=== PATIENT | female | born 1955 | race Caucasian/White ===

== ENCOUNTER 2018-08-04 04:54 | Emergency (ER) | payer BC ==
--- NOTE | 2018-08-04 05:35 | ED ---
GI/ HPI - HPI Summary HPI Summary: Patient is a 63 y/o F w/ c/o right flank pain, right lower back pain, ribcage pain, and periumbilical pain onsetting today at midnight. Patient states she was asleep when she was awoken by pain. She denies SOB, fever, cough and vomiting but notes burping a lot. In room, she states abdominal pain has resolved. 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 She states she is doing radiation therapy, no chemo. Patient notes that she has an appointment at [facility] [place] for [place] treatment. Patient took 5 mg oxycodone at 1000 yesterday and states she is on letrozole and ibrance. She reports having Chest CT six days ago. Patient recently travelled to [place]. On triage, pain is rated 7/10. Movement is noted to aggravate pain, nothing is noted to alleviate Sx. Home medications and allergies are reviewed. - History of Current Complaint Time Seen by Provider: 08/04/18 04:59 Stated Complaint: BACL PAIN/ABD PAIN Hx Obtained From: Patient Onset/Duration: Started Hours Ago - onset midnight today, Still Present - right flank pain and right back pain, Resolved - abdominal pain is reported to have resolved Timing: Constant Current Severity: Severe - 7/10 Pain Intensity: 7 Location of Pain: Flank - right flank, Umbilical, Other - right lower back pain Associated Signs and Symptoms: Positive: Back Pain - right lower, Flank Pain - right, Abdominal Pain - periumbilical, Other: - NEGATIVE: SOB POSITIVE: ribcage pain. Negative: Vomiting Aggravating Factor(s): Movement Alleviating Factor(s): Nothing - Allergy/Home Medications Allergies/Adverse Reactions: Allergies Allergy/AdvReac Type Severity Reaction Status Date / Time Penicillins Allergy Severe Swelling Verified 08/04/18 05:24 Of Face,Lips,& Throat Sulfa (Sulfonamide Allergy Mild Itching Verified 08/04/18 05:24 Antibiotics) Home Medications: Home Medications Letrozole 2.5 mg PO DAILY 08/04/18 [History Confirmed 08/04/18] oxyCODONE TAB* 5 ml PO Q4HR PRN 08/04/18 [History Confirmed 08/04/18] PMH/Surg Hx/FS Hx/Imm Hx Endocrine/Hematology History: Denies: Hx Diabetes Cardiovascular History: Denies: Hx Hypertension History: Denies: Hx Renal Disease Musculoskeletal History: Denies: Hx Osteoporosis - Cancer History Cancer Type, Location and Year: BREAST CA - Surgical History Surgery Procedure, Year, and Place: BILATERAL LUMPECTOMY, CHOLECYSTECTOMY Infectious Disease History: No Infectious Disease History: Denies: Traveled Outside the [place] in Last 30 Days - Family History Known Family History: Negative: Blood Disorder - Social History Alcohol Use: Occasionally Substance Use Type: Reports: None Smoking Status (MU): Never Smoked Tobacco Review of Systems Negative: Fever Positive: Other - ribcage pain Negative: Shortness Of Breath, Cough Positive: Abdominal Pain - periumbilical , Other - patient reports burping a lot . Negative: Vomiting Positive: flank pain - right Positive: Other - right lower back pain All Other Systems Reviewed And Are Negative: Yes Physical Exam - Summary Physical Exam Summary: VITAL SIGNS: Reviewed. GENERAL: Patient is a well-developed and nourished female who is lying comfortable in the stretcher. Patient is not in any acute respiratory distress. Tenderness over right lower chest wall, posterior HEAD AND FACE: No signs of trauma. No ecchymosis, hematomas or skull depressions. No sinus tenderness. EYES: PERRLA, EOMI x 2, No injected conjunctiva, no nystagmus. EARS: Hearing grossly intact. Ear canals and tympanic membranes are within normal limits. MOUTH: Oropharynx within normal limits. NECK: Supple, trachea is midline, no adenopathy, no JVD, no carotid bruit, no c- spine tenderness, neck with full ROM. CHEST: Symmetric, no tenderness at palpation LUNGS: Clear to auscultation bilaterally. No wheezing or crackles. CVS: Regular rate and rhythm, S1 and S2 present, no murmurs or gallops appreciated. ABDOMEN: Soft, non-tender. No signs of distention. No rebound no guarding, and no masses palpated. Bowel sounds are normal. EXTREMITIES: FROM in all major joints, no edema, no cyanosis or clubbing. NEURO: Alert and oriented x 3. No acute neurological deficits. Speech is normal and follows commands. SKIN: Dry and warm Triage Information Reviewed: Yes Vital Signs On Initial Exam: Initial Vitals Temp Pulse Resp BP Pulse Ox 97.8 F 58 16 139/63 97 08/04/18 05:05 08/04/18 05:05 08/04/18 05:05 08/04/18 05:05 08/04/18 05:05 Vital Signs Reviewed: Yes Procedures - Procedure Summary Procedure Summary: Procedure: IV under US guidance. Verbal consent obtained from patient. Antecubital vein was visualized. Angiocath 18 gauge was used; good blood return , good flush, no complications. Diagnostics - Vital Signs Vital Signs Temp Pulse Resp BP Pulse Ox 08/04/18 05:09 58 139/63 97 08/04/18 05:05 97.8 F 58 16 139/63 97 - Laboratory Result Diagrams: 08/04/18 05:50 08/04/18 05:50 Lab Statement: Any lab studies that have been ordered have been reviewed, and results considered in the medical decision making process. - EKG 0627 Cardiac Rate: Bradycardia - rate of 57 BPM EKG Rhythm: Sinus Bradycardia EKG Interpretation: short HI, no ischemic changes Re-Evaluation - Re-Evaluation First Eval Re-Evaluation Time: 05:58 Comment: Procedure: IV under US guidance. Verbal consent obtained from patient. Antecubital vein was visualized. Angiocath 18 gauge was used; good blood return , good flush, no complications. GIGU Course/Dx - Course Course Of Treatment: Patient is a 63 y/o F w/ c/o right flank pain, right lower back pain, ribcage pain, and periumbilical pain onsetting today at midnight. Patient states she was asleep when she was awoken by pain. She denies SOB, fever , cough and vomiting but notes burping a lot. In room, she states abdominal pain has resolved. 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 She states she is doing radiation therapy, no chemo. Patient notes that she has an appointment at [facility] [place] today for CA treatment. Patient took 5 mg oxycodone at 1000 yesterday and states she is on letrozole and ibrance. She reports having Chest CT six days ago. Patient recently travelled to [place]. On triage, pain is rated 7 /10. Movement is noted to aggravate pain, nothing is noted to alleviate Sx. Physical exam showed tenderness over right lower chest wall, posterior. IV under US guidance was done. Verbal consent obtained from patient. Antecubital vein was visualized. Angiocath 18 gauge was used; good blood return, good flush , no complications. During ED course, patient was given fentanyl 100 mcg IV SLOW PU, Zofran 8 mg IV, and fluids. Labs showed Alkaline Phosphatase 335, trop 0, d-dimer 1050. EKG showed bradycardia at 57 BPM, short HI, and no ischemic changes. Patient was signed out to Dr. Rodriguez pending CTA chest results and disposition. Dx of chest wall pain. - Diagnoses Provider Diagnoses: Chest wall pain Discharge - Sign-Out/Discharge Documenting (check all that apply): Sign-Out Patient Signing out patient TO: Isidro Rodriguez Receiving patient FROM: Noemi Munoz - Discharge Plan Referrals: Renuka Montoya MD [Primary Care Provider] - - Attestation Statements Document Initiated by Scribe: Yes Documenting Scribe: Daryl Austin Provider For Whom Scribe is Documenting (Include Credential): Noemi Munoz MD Scribe Attestation: Daryl Samuels, scribed for Noemi Munoz MD on 08/04/18 at 0653.
[2018-08-04] MEDS ORDERED: fentaNYL* 50 MCG/ML 2 ML VIAL (100 MCG VIAL) IV SLOW PU ONE (05:57)
[2018-08-04] MEDS ORDERED: NS 0.9% 1000 ML* 1,000 ML IV ONE (05:57)
[2018-08-04] MEDS ORDERED: Ondansetron INJ* 2 MG/ML VIAL IV ONE (05:58)
[2018-08-04 06:27] LABS: INR 0.91 (0.77-1.02)
[2018-08-04 06:28] LABS: ABS Basophils 0.1 10^3/ul (0-0.2); ABS Eosinophils 0 10^3/ul (0-0.6); ABS Monocytes 0.5 10^3/ul (0-0.8); ABS Neutrophils 4.3 10^3/ul (1.5-7.7); ABS Nucleated RBC 0 10^3/ul; Eosinophil % 0.6 % (0-6); Hematocrit 36 % (35-47); Hemoglobin 12.2 g/dl (12.0-16.0); Lymphocyte % 17.1 % (25-47); Mean Corpuscular HGB Conc 34 g/dl (31-36); Mean Corpuscular Hemoglobin 28 pg (27-31); Mean Corpuscular Volume 83 fL (80-97); Mean Platelet Volume 8.6 um3 (7.4-10.4); Nucleated Red Blood Cells % 0; Platelet Count 342 10^3/ul (150-450); Red Blood Count 4.35 10^6/ul (4.00-5.40); Red Cell Distribution Width 15 % (10.5-15); White Blood Count 5.8 10^3/ul (3.5-10.8)
[2018-08-04 06:35] LABS: EGFR Non-African American 97.2 (>60)
[2018-08-04] MEDS ORDERED: Iohexol 350* (CONTRAST) 500 ML MDV IV ONE (06:42)
--- NOTE | 2018-08-04 07:45 | RAD ---
INDICATION: Shortness of breath, evaluate for pulmonary embolism. COMPARISON: Comparison is made with a prior CT of the chest from July 28, 2018. TECHNIQUE: A CT angiogram of the chest was performed with intravenous following intravenous injection of 60 ml of Omnipaque 350 nonionic contrast. Contiguous axial sections were obtained from the lung apices through the lung bases. Images were reconstructed in the coronal and sagittal planes. FINDINGS: PULMONARY ARTERIES: There is relatively homogeneous opacification of the pulmonary arteries. No intraluminal filling defect or pulmonary embolism is seen. HEART: The heart appears mildly enlarged. No pericardial effusion is present. There are coronary calcifications present. THORACIC AORTA: The aorta is normal in caliber and demonstrates homogeneous contrast opacification. LUNGS: There are dependent bilateral lower lobe infiltrates most consistent with subsegmental atelectasis. No pleural effusion is seen. No pleural effusion is present. MEDIASTINUM: No significant enlarged mediastinal or hilar lymph nodes are seen. ABDOMEN: No acute findings are seen on the visualized portion of the upper abdomen. BONES AND SOFT TISSUES: There are multiple lytic lesions involving the dorsal vertebra and ribs. There is a 3.4 x 3.8 cm density in the left breast with adjacent surgical clips and calcifications consistent with a breast mass or postoperative hematoma. There are multiple surgical clips in the left axilla. No enlarged axillary lymph nodes are seen. IMPRESSION: 1. NO EVIDENCE FOR PULMONARY EMBOLISM. 2. OSSEOUS METASTATIC DISEASE. 3. LEFT BREAST MASS VERSUS POSTSURGICAL CHANGE.
--- NOTE | 2018-08-04 08:22 | ED ---
Progress - Progress Note Progress Note: This patient was signed out from Dr. Munoz to Dr. Rodriguez, pending disposition, awaiting CTA Chest/Thorax. CTA Chest/Thorax reveals 1. NO EVIDENCE FOR PULMONARY EMBOLISM. 2. OSSEOUS METASTATIC DISEASE. 3. LEFT BREAST MASS VERSUS POSTSURGICAL CHANGE. ED physician has reviewed this radiology report. Re-eval done at 0823. The patient is feeling okay. This patient will be discharged with a dx of flank pain. Patient understands and agrees with this plan. Re-Evaluation - Re-Evaluation First Eval Re-Evaluation Time: 05:58 Comment: Procedure: IV under US guidance. Verbal consent obtained from patient. Antecubital vein was visualized. Angiocath 18 gauge was used; good blood return , good flush, no complications. Course/Dx - Diagnoses Provider Diagnoses: Flank pain Discharge - Sign-Out/Discharge Documenting (check all that apply): Patient Departure - discharge - Discharge Plan Condition: Stable Disposition: HOME Patient Education Materials: Flank Pain (ED) Referrals: Renuka Montoya MD [Primary Care Provider] - 3 Days Additional Instructions: PLEASE RETURN TO THE ED FOR ANY NEW OR WORSENING SYMPTOMS. - Billing Disposition and Condition Condition: STABLE Disposition: Home - Attestation Statements Document Initiated by Scribe: Yes Documenting Scribe: Ta Martinez Provider For Whom Aleta is Documenting (Include Credential): Isidro Rodriguez MD Scribe Attestation: Ta Samuels, scribed for Isidro Rodriguez MD on 08/04/18 at 0846. Scribe Documentation Reviewed: Yes Provider Attestation: The documentation as recorded by the Ta gonzalez accurately reflects the service I personally performed and the decisions made by , Isidro Rodriguez MD
[2018-08-04 08:41] VITALS: BP 126/73
== END 2018-08-04 08:41 | disposition home or self-care (01) ==
LOC: ED 04:54
DX: R07.89 Other chest pain (principal); M89.9 Disorder of bone, unspecified; R10.33 Periumbilical pain; M54.5 Low back pain; R07.81 Pleurodynia; C50.919 Malignant neoplasm of unspecified site of unspecified female breast; C79.89 Secondary malignant neoplasm of other specified sites; R00.1 Bradycardia, unspecified; Z88.0 Allergy status to penicillin; Z88.2 Allergy status to sulfonamides
CPT/HCPCS: 36415; 71275; 80053; 82550; 83735; 84484; 85025; 85379; 85610; 85730; 93005; 96361; 96374; 96375; 99282; J2405; J3010; Q9967

== ENCOUNTER 2024-08-04 12:46 | Inpatient (IN) ==
[2024-08-04 15:07] LABS: Albumin 4.2 g/dL (3.2-5.2); Albumin/Globulin Ratio 1.4 (1-3); Calcium 9.1 mg/dL (8.6-10.3); Creatinine, Serum 1.06 mg/dL (0.51-0.95); Globulin 2.9 g/dL (2-4); Potassium 3.4 mmol/L (3.5-5.0); Total Bilirubin 0.6 mg/dL (0.2-1.0); Total Protein 7.1 g/dL (6.4-8.9); eGFR CKD-EPI 56.9 (>60)
[2024-08-04 15:10] LABS: ABS Eosinophils 0.3 10^3/uL (0.0-0.5); ABS Lymphocytes 0.2 10^3/uL (1.0-4.8); ABS Monocytes 0.1 10^3/uL (0.0-0.9); ABS Neutrophils 5.5 10^3/uL (1.5-7.6); Eosinophil % 4.9 %; Hematocrit 36.3 % (35-45); Hemoglobin 12.4 g/dL (11.5-14.3); Lymphocyte % 3.5 %; Mean Corpuscular Hemoglobin 33.1 pg (27-33); Mean Corpuscular Hgb Conc 34.3 g/dL (31-36); Mean Corpuscular Volume 96.6 fL (80-97); Mean Platelet Volume 8.6 fL (7.5-11.2); Platelet Count 220 10^3/uL (150-450); Red Blood Count 3.75 10^6/uL (3.63-4.92); Red Cell Distribution Width 16.5 % (12-17); White Blood Count 6.2 10^3/uL (3.8-11.8)
[2024-08-04] MEDS ORDERED: Vancomycin per Pharmacy 1 EA NOTE FOLLOW UP SCH (16:00)
[2024-08-04] MEDS: Enoxaparin 40 MG/0.4 ML SYR SUBCUT SCH (17:45)
[2024-08-04] MEDS: NS 0.9% 1000 ml BAG 1,000 ML IV SCH (17:45)
[2024-08-04] MEDS: methylPREDNISolone SOD SUCC 40 mg/ml 1 ml VIAL IV SCH (17:45)
[2024-08-04] MEDS: Vancomycin 1,000 MG in NS 0.9% 250 ml 250 ML IVPB ONE (17:45)
[2024-08-04] MEDS: KCL 20 MEQ/100 ML IVPREMIX 20 MEQ/100 ML BAG IV ONE (19:27)
[2024-08-04] MEDS ORDERED: Famotidine IV 10 MG/ML 2 ml VIAL (20 mg) IV SLOW PU SCH (21:00)
[2024-08-04] MEDS: Famotidine IV 10 MG/ML 2 ml VIAL (20 mg) IV SLOW PU ONE (21:50)
[2024-08-04 23:42] LABS: Urine Appearance Clear; Urine Bilirubin Negative (Negative); Urine Blood Negative (Negative); Urine Color Light-Yellow; Urine Glucose Negative (Negative); Urine Ketones Negative (Negative); Urine Nitrite Negative (Negative); Urine Protein Negative (Negative); Urine Specific Gravity 1.017 (1.002-1.030); Urine Urobilinogen Negative (Negative)
[2024-08-05 06:35] LABS: ABS Lymphocytes 0.2 10^3/uL (1.0-4.8); ABS Monocytes 0.1 10^3/uL (0.0-0.9); ABS Neutrophils 3.4 10^3/uL (1.5-7.6); Eosinophil % 0.8 %; Hematocrit 35.7 % (35-45); Hemoglobin 11.6 g/dL (11.5-14.3); Lymphocyte % 6.3 %; Mean Corpuscular Hemoglobin 32.3 pg (27-33); Mean Corpuscular Hgb Conc 32.5 g/dL (31-36); Mean Corpuscular Volume 99.4 fL (80-97); Mean Platelet Volume 8.6 fL (7.5-11.2); Platelet Count 149 10^3/uL (150-450); Red Blood Count 3.59 10^6/uL (3.63-4.92); Red Cell Distribution Width 16.3 % (12-17); White Blood Count 3.7 10^3/uL (3.8-11.8)
[2024-08-05 06:57] LABS: Albumin 3.5 g/dL (3.2-5.2); Albumin/Globulin Ratio 1.7 (1-3); Calcium 7.6 mg/dL (8.6-10.3); Creatinine, Serum 0.75 mg/dL (0.51-0.95); Globulin 2.1 g/dL (2-4); Potassium 3.3 mmol/L (3.5-5.0); Total Bilirubin 0.5 mg/dL (0.2-1.0); Total Protein 5.6 g/dL (6.4-8.9); eGFR CKD-EPI 86.1 (>60)
[2024-08-05] MEDS: Potassium Chloride LIQUID 20 MEQ/15 ML LIQUID PO ONE (08:25)
[2024-08-05 09:42] VITALS: BP 122/73
[2024-08-05 12:43] LABS: Magnesium 1.7 mg/dL (1.9-2.7)
== END 2024-08-05 14:00 | disposition home or self-care (01) | DRG 607 ==
LOC: CHOA 12:46 → MED 15:59
PROVIDERS: ADMIT Internal Medicine Medical Oncology; ATTEND Student in an Organized Health Care Education/Training Program